=== PATIENT | female | born 1970 | race Two or more races ===

== ENCOUNTER 2020-06-06 16:21 | Emergency (ER) | payer SELFPAY ==
[~2020-06-06] VITALS: Ht 160 cm; Wt 62.0 kg
[2020-06-06] MEDS ORDERED: SIMV5TAB58 PO (16:41)
[2020-06-06 17:01] LABS: HEMATOCRIT. 30.4 % (36.0-48.0); HEMOGLOBIN. 8.8 g/dL (12.0-16.0); MEAN CORPUSCULAR HEMOGLOBIN 17.2 pg (28.0-32.0); MEAN CORPUSCULAR VOLUME 59.4 fL (81.0-99.0); MEAN PLATELET VOLUME 8.9 fl (7.4-10.4); PLATELET 311 x1000/uL (130-400); RED BLOOD CELL COUNT 5.13 mill/uL (4.2-5.4); RED CELL DISTRIBUTION WIDTH 21.9 % (11.6-14.6)
[2020-06-06 17:05] LABS: CHLORIDE 107 mEq/L (98-107)
[2020-06-06 17:07] LABS: D-DIMER 0.82 mg/L FEU (<0.50)
[2020-06-06 18:17] LABS: PLATELET ESTIMATE NORMAL
[2020-06-06 20:34] VITALS: BP 125/69
== END 2020-06-06 20:34 | disposition home or self-care (01) ==
LOC: ER 16:21
DX: R04.2 Hemoptysis (principal); I49.9 Cardiac arrhythmia, unspecified; Z98.890 Other specified postprocedural states
CPT/HCPCS: 36415; 71045; 71260; 80053; 84484; 85025; 85379; 93005; 99285

== ENCOUNTER → 2020-06-11 | Outpatient (CLI) | payer BC ==
[~2020-06-11] MED LIST: SIMV5TAB58 PO
== END | disposition home or self-care (01) ==
LOC: US 09:35
DX: M79.604 Pain in right leg (principal)
CPT/HCPCS: 93970